=== PATIENT | female | born 1945 | race Caucasian/White ===

== ENCOUNTER 2022-08-30 07:09 | Day surgery (SDC) | payer MEDICARE, BC ==
[2022-08-28 13:15] LABS: BASOPHILS % (AUTO) 0.5 % (0.0-5.0); EOSINOPHILS % (AUTO) 2.8 % (0.0-8.0); HEMATOCRIT 37.3 % (36-48); LYMPHOCYTES % (AUTO) 28.7 % (21.0-51.0); MEAN CORPUSCULAR HEMOGLOBIN 29.1 pg (27.0-33.0); MEAN CORPUSCULAR HGB CONC 33.2 g/dL (32.0-36.0); MEAN CORPUSCULAR VOLUME 87.6 fL (79-99); MONOCYTES % (AUTO) 5.5 % (3.0-13.0); PLATELET COUNT (AUTO) 226 K/uL (130-400); RED BLOOD CELL COUNT(AUTO) 4.26 MIL/uL (4.00-5.50); RED CELL DISTRIBUTION WIDTH 13.1 % (11.0-15.5); WHITE BLOOD COUNT (AUTO) 7.8 K/uL (4.8-10.8)
[2022-08-28 13:28] LABS: CREATININE 0.9 mg/dL (0.5-1.5); INR 0.96 (0.85-1.15); POTASSIUM 3.5 mmol/L (3.5-5.1); PROTHROMBIN TIME 10.5 SEC (9.6-11.6)
[2022-08-28 13:29] LABS: PARTIAL THROMBOPLASTIN TIME 24.8 SEC (26.3-35.5)
[2022-08-29 12:47] VITALS: BP 152/57
[2022-08-30] VITALS (14 sets, daily range): BP systolic 117–158; BP diastolic 52–73
[~2022-08-30] VITALS: Ht 148.6 cm; Wt 61.9 kg
[~2022-08-30 07:09] MED LIST: AEC81 PO; BENA5TAB40 PO; CALC-1038 PO; EMPA1TAB11 PO; HYDR25TA PO; NITR0.4T50 SL; SERT-438 PO; SIMV-43 PO
[2022-08-30] MEDS ORDERED: 0.9%NACL 1000ML 1,000 ML IV SCH (08:00)
[2022-08-30] MEDS ORDERED: FLUMAZENIL 0.1MG/1ML 5ML VIAL IV ONE (08:09)
[2022-08-30] MEDS ORDERED: LIDOCAINE HCL 2% VISCOUS 15 ML UDCUP ONE (08:09)
[2022-08-30] MEDS ORDERED: FENTANYL CITRATE PF 50 MCG/1 ML 2ML VIAL ONE (08:10)
[2022-08-30] MEDS ORDERED: MIDAZOLAM HCL 1 MG/ML 2ML VIAL ONE (08:10)
[2022-08-30] MEDS ORDERED: NALOXONE HCL 0.4 MG/1 ML ML ONE (08:10)
== END 2022-08-30 10:09 | disposition home or self-care (01) ==
LOC: DAH 07:09
PROVIDERS: ATTEND Student in an Organized Health Care Education/Training Program
DX: I08.3 Combined rheumatic disorders of mitral, aortic and tricuspid valves (principal); R55 Syncope and collapse; E11.22 Type 2 diabetes mellitus with diabetic chronic kidney disease; I12.9 Hypertensive chronic kidney disease with stage 1 through stage 4 chronic kidney disease, or unspecified chronic kidney disease; N18.30 Chronic kidney disease, stage 3 unspecified; I44.2 Atrioventricular block, complete; E78.5 Hyperlipidemia, unspecified; F41.9 Anxiety disorder, unspecified; F32.A Depression, unspecified; Z79.82 Long term (current) use of aspirin; Z79.84 Long term (current) use of oral hypoglycemic drugs; Z79.01 Long term (current) use of anticoagulants; Z79.899 Other long term (current) drug therapy
CPT/HCPCS: 80048; 85025; 85610; 85730; 36415; 82948; 93325; 93312; A4223 ×3; J3010; J7030 ×2; J2250; A4215; A7002; A4222; A4221; A4663; A4216; A4606; 96374; 99152; J2310; J3490

== ENCOUNTER → 2022-09-25 | Outpatient (CLI) | payer MEDICARE | END | disposition home or self-care (01) | LOC: RAH 13:30 | PROVIDERS: ATTEND Student in an Organized Health Care Education/Training Program | DX: I70.213 Atherosclerosis of native arteries of extremities with intermittent claudication, bilateral legs (principal) | CPT/HCPCS: 93925 ==

== ENCOUNTER → 2024-05-30 | Outpatient (CLI) | payer MEDICARE, OTHER | END | disposition home or self-care (01) | LOC: SHCH 10:00 | PROVIDERS: ATTEND Student in an Organized Health Care Education/Training Program | DX: I08.0 Rheumatic disorders of both mitral and aortic valves (principal); R07.9 Chest pain, unspecified | CPT/HCPCS: 93306 ==